=== PATIENT | male | born 1995 | race Caucasian/White ===

== ENCOUNTER 2021-03-29 14:39 | Emergency (ER) | payer MEDICAID ==
[~2021-03-29] VITALS: Ht 165.1 cm; Wt 75.0 kg
[2021-03-29 14:46] VITALS: BP 108/68
[2021-03-29] MEDS ORDERED: IBUP-1653 PO (14:49)
[2021-03-29] MEDS ORDERED: CYCLOBENZAPRINE 10MG TABLET PO ONE (15:00)
[2021-03-29] MEDS ORDERED: ACETAMINOPHEN 325MG TABLET PO ONE (15:00)
[2021-03-29] MEDS ORDERED: KETOROLAC 30MG/ML VIAL IM ONE (15:00)
[2021-03-29] MEDS ORDERED: IBUP-2029 MT (15:43)
[2021-03-29] MEDS ORDERED: CYCL5TAB MT (15:43)
== END 2021-03-29 16:21 | disposition home or self-care (01) ==
LOC: ER 14:39
DX: M54.50 Low back pain, unspecified (principal); F17.210 Nicotine dependence, cigarettes, uncomplicated
CPT/HCPCS: 72100; 96372; 99283; J1885